=== PATIENT | male | born 1975 | race Caucasian/White ===

== ENCOUNTER 2017-08-26 15:23 | Emergency (ER) | payer OTHER ==
[~2017-08-26] VITALS: Ht 188 cm; Wt 95.0 kg
[2017-08-26 15:33] VITALS: BP 152/75; PULSE 86; RESP 16; TEMP 99.9; O2SAT 100
[2017-08-26] MEDS ORDERED: BACT800T5 PO (15:53)
[2017-08-26] MEDS ORDERED: SODIUM CHLORIDE 0.9% FLUSH 10 ML FLUSH IVF PRN (16:15)
[2017-08-26] MEDS ORDERED: CLINDAMYCIN INJ 600 MG in SODIUM CHLORIDE 0.9% INJ 100 ML IV ONE (16:15)
[2017-08-26] MEDS ORDERED: KETOROLAC TROMETHAMINE 30 MG/ML (IVP) VIAL IVP ONE (16:15)
--- NOTE | 2017-08-26 16:31 | PD ---
HPI Chief Complaint: Skin Problem Time Seen by Provider: 15:59 Travel History International Travel<30 days: No Contact w/Intl Traveler<30days: No Traveled to known affect area: No History of Present Illness HPI 41-year-old male presents emergency department with draining wound to the right anterior lateral knee. Patient was seen by his PCP 2 days ago, and started on Bactrim DS twice daily. Patient feels it is improving since then. Patient states swelling has improved since it started spontaneously draining yesterday. He denies fever chills. He currently has serous drainage from it now. Pain is somewhat improved compared to yesterday according to the patient. Pain currently is a 7 out of 10, and worse with ambulation. Patient has history of similar abscesses in the past. He has no known drug allergies. [facility] Social History Alcohol Use: No Tobacco Use: No Substance Use: No Allergies-Medications (Allergen,Severity, Reaction): Coded Allergies: No Known Allergies (Unverified Allergy, Unknown, 08/26/17) Reported Meds & Prescriptions Reported Meds & Active Scripts Active Reported Bactrim DS (Sulfamethoxazole-Trimethoprim) 800-160 Mg Tab 1 Tab PO BID Review of Systems Except as stated in HPI: all other systems reviewed are Neg General / Constitutional: No: Fever Eyes: No: Visual changes HENT: No: Headaches Cardiovascular: No: Chest Pain or Discomfort Respiratory: No: Shortness of Breath Gastrointestinal: No: Abdominal Pain Genitourinary: No: Dysuria Musculoskeletal: Positive: Arthralgias, Pain (See history of present) Skin: Positive Lesions, No Rash Neurologic: No: Weakness Psychiatric: No: Depression Endocrine: No: Polydipsia Hematologic/Lymphatic: No: Easy Bruising Physical Exam Narrative GENERAL: Patient appears in no acute distress per SKIN: Warm and dry. Normal color. Normal turgor. Patient has a quarter size erythematous raised lesion consistent with probable MRSA cellulitis to the right anterior lateral knee without signs of deep abscess or joint involvement. Localized erythema extends out approximately 6 cm in diameter around it. He states this is improved since starting antibiotics. Patient is noticed some lymphadenopathy in the right inguinal region which he states is improved since starting his antibiotics 2 days ago. HEAD: Atraumatic. Normocephalic. EYES: Pupils equal and round. No scleral icterus. No injection or drainage. ENT: No nasal bleeding or discharge. Mucous membranes pink and moist. Airways patent. Pharynx is normal. NECK: Trachea midline. Supple and nontender CARDIOVASCULAR: Regular rate and rhythm. No murmurs gallops or rubs. RESPIRATORY: No accessory muscle use. Clear to auscultation. Breath sounds equal bilaterally. GASTROINTESTINAL: Abdomen soft, non-tender, nondistended. Hepatic and splenic margins not palpable. MUSCULOSKELETAL: Extremities without clubbing, cyanosis, or edema. No obvious deformities. NEUROLOGICAL: Awake and alert. No obvious cranial nerve deficits. Motor grossly within normal limits. Five out of 5 muscle strength in the arms and legs. Normal speech. PSYCHIATRIC: Appropriate mood and affect; insight and judgment normal. Data Data Last Documented VS Vital Signs Date Time Temp Pulse Resp B/P (MAP) Pulse Ox O2 Delivery O2 Flow Rate FiO2 08/26/17 15:33 99.9 86 16 152/75 (100) 100 Orders Orders Basic Metabolic Panel (Bmp) (08/26/17 16:07) Complete Blood Count With Diff (08/26/17 16:07) Blood Culture (08/26/17 16:07) Wound Culture And Gram Stain (08/26/17 16:07) Iv Access Insert/Monitor (08/26/17 16:07) Wound Care (08/26/17 16:07) Ketorolac Inj (Toradol Inj) (08/26/17 16:15) Sodium Chloride 0.9% Flush (Ns Flush) (08/26/17 16:15) Clindamycin Inj (Cleocin Inj) (08/26/17 16:15) Lactic Acid (08/26/17 16:07) Splint Or Brace Apply/Monitor (08/26/17 16:07) Labs Laboratory Tests Test 08/26/17 16:25 White Blood Count 10.4 TH/MM3 Red Blood Count 4.49 MIL/MM3 Hemoglobin 13.3 GM/DL Hematocrit 38.3 % Mean Corpuscular Volume 85.4 FL Mean Corpuscular Hemoglobin 29.6 PG Mean Corpuscular Hemoglobin Concent 34.7 % Red Cell Distribution Width 13.5 % Platelet Count 306 TH/MM3 Mean Platelet Volume 8.6 FL Neutrophils (%) (Auto) 76.5 % Lymphocytes (%) (Auto) 14.3 % Monocytes (%) (Auto) 8.3 % Eosinophils (%) (Auto) 0.5 % Basophils (%) (Auto) 0.4 % Neutrophils # (Auto) 8.0 TH/MM3 Lymphocytes # (Auto) 1.5 TH/MM3 Monocytes # (Auto) 0.9 TH/MM3 Eosinophils # (Auto) 0.1 TH/MM3 Basophils # (Auto) 0.0 TH/MM3 CBC Comment DIFF FINAL Differential Comment Blood Urea Nitrogen 17 MG/DL Creatinine 1.31 MG/DL Random Glucose 104 MG/DL Calcium Level 9.1 MG/DL Sodium Level 139 MEQ/L Potassium Level 4.2 MEQ/L Chloride Level 104 MEQ/L Carbon Dioxide Level 29.1 MEQ/L Anion Gap 6 MEQ/L Estimat Glomerular Filtration Rate 60 ML/MIN Lactic Acid Level 1.3 mmol/L MDM Medical Decision Making Medical Screen Exam Complete: Yes Emergency Medical Condition: Yes Differential Diagnosis Draining abscess right anterior lateral knee. MRSA. Cellulitis. Possible sepsis. Narrative Course Patient appears medically stable at time of exam. Labs ordered including CBC, BMP, lactic acid, but cultures 2, and a wound culture is sent from the draining wound on the right knee. IV access is obtained and the patient is given 30 mg Toradol IV as well as 600 mg clindamycin IV. Dressing is applied to the wound area as well as a knee immobilizer to the right leg. CBC shows no significant leukocytosis with a WBC count of 10.4. BMP is unremarkable. Lactic acid is normal at 1.4. Patient is felt to be stable for discharge. Patient will be continued on his Bactrim DS twice daily. I am going to add clindamycin 300 mg 4 times daily for 7 days. Patient is also given ibuprofen 800 mg up to 3 times daily #30. Patient keep the wound clean and covered and wear the knee immobilizer for the next week. Patient can clean the wound twice a day and apply Bactroban ointment. Patient to follow-up if symptoms do not continue to improve. Wound culture is pending. Diagnosis Primary Impression: Cellulitis of right knee Patient Instructions: Cellulitis (ED), General Instructions Additional Instructions: CBC shows no significant leukocytosis with a WBC count of 10.4. BMP is unremarkable. Lactic acid is normal at 1.4. Patient is felt to be stable for discharge. Patient will be continued on his Bactrim DS twice daily. I am going to add clindamycin 300 mg 4 times daily for 7 days. Patient is also given ibuprofen 800 mg up to 3 times daily #30. Patient keep the wound clean and covered and wear the knee immobilizer for the next week. Patient can clean the wound twice a day and apply Bactroban ointment. Patient to follow-up if symptoms do not continue to improve. Wound culture is pending. Med/Other Pt SpecificInfo: Prescription(s) given, Wound Care Disposition: 01 DISCHARGE HOME Condition: Stable Patrice Astudillo Aug 26, 2017 16:31
[2017-08-26 16:47] LABS: BASOPHIL % 0.4 % (0.0-2.0); EOSINOPHIL # 0.1 TH/MM3 (0-0.4); EOSINOPHIL % 0.5 % (0.0-4.0); HEMATOCRIT 38.3 % (39.0-51.0); HEMOGLOBIN 13.3 GM/DL (13.0-17.0); LYMPH % 14.3 % (9.0-44.0); LYMPHOCYTE # 1.5 TH/MM3 (1.0-4.8); MEAN CELL VOLUME 85.4 FL (80.0-100.0); MEAN CORPUSCULAR HEMOGLOBIN 29.6 PG (27.0-34.0); MEAN CORPUSCULAR HGB CONC 34.7 % (32.0-36.0); MEAN PLATELET VOLUME 8.6 FL (7.0-11.0); MONO % 8.3 % (0.0-8.0); MONOCYTE # 0.9 TH/MM3 (0-0.9); NEUT % 76.5 % (16.0-70.0); PLATELET COUNT 306 TH/MM3 (150-450); RED BLOOD COUNT 4.49 MIL/MM3 (4.50-5.90); RED CELL DISTRIBUTION WIDTH 13.5 % (11.6-17.2); WHITE BLOOD COUNT 10.4 TH/MM3 (4.0-11.0)
[2017-08-26 16:53] LABS: BICARBONATE 29.1 MEQ/L (21.0-32.0); CALCIUM 9.1 MG/DL (8.5-10.1); CREATININE 1.31 MG/DL (0.60-1.30)
[2017-08-26] MEDS ORDERED: IBUP1TAB7 PO (17:07)
[2017-08-26] MEDS ORDERED: CLIN300C5 PO (17:07)
[2017-08-26] MEDS ORDERED: MUPI2%T TOPICAL (17:15)
== END 2017-08-26 17:55 | disposition home or self-care (01) ==
LOC: NEPD 15:23
DX: L03.115 Cellulitis of right lower limb (principal)
CPT/HCPCS: 80048; 83605; 85025; 87040; 87070; 87205; 96374; 96375; 99284; J1885; L1830